=== PATIENT | male | born 1975 | race Caucasian/White ===

== ENCOUNTER 2018-01-05 07:58 | Emergency (ER) | payer SELFPAY ==
[2018-01-05] MEDS ORDERED: BENADRYL PO ONE (11:02)
[2018-01-05] MEDS ORDERED: TORADOL IM ONE (11:02)
[2018-01-05] MEDS ORDERED: DECADRON IV ONE (11:02)
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
[2018-01-05] MEDS ORDERED: MAGIC MOUTHWASH PO ONE (12:00)
--- NOTE | 2018-01-05 14:14 | XRay Report ---
NECK SOFT TISSUE RADIOGRAPHS INDICATION: Uvula/tonsil pain and swelling. Difficult to swallow. COMPARISON: None similar at this institution. FINDINGS: AP and lateral radiographs to evaluate neck soft tissues demonstrate grossly normal prevertebral soft tissues and the airway. Clear imaged lung apices. Sternotomy wires. Grossly intact craniocervical articulation with hazy visualization upto C7 vertebral body. Mild cervical spine straightening. Possible segmentation anomaly of C5 vertebral body inferiorly, bony bridging with C6 and a hypoplastic C5-C6 disc. CONCLUSION: Grossly unremarkable airway with sternotomy wires and C5-C6 developmental anomaly incidentally noted, as described. Please correlate. Thank you for the opportunity to participate in this patient's care.
[2018-01-05 14:32] VITALS: BP 140/90
== END 2018-01-05 14:54 | disposition home or self-care (01) ==
LOC: ED 07:58
DX: K12.2 Cellulitis and abscess of mouth (principal); J03.80 Acute tonsillitis due to other specified organisms; J02.9 Acute pharyngitis, unspecified
CPT/HCPCS: 70360; 87116; 87430; 96372; 96374; 99283; J1100; J1885; Q0163